=== PATIENT | male | born 1975 | race Caucasian/White ===

== ENCOUNTER 2018-02-11 11:52 | Emergency (ER) | payer BC, OTHER ==
[2018-02-11] MEDS ORDERED: NS 0.9% 1000 ML* 1,000 ML IV ONE (12:41)
[2018-02-11 13:07] LABS: ABS Basophils 0 10^3/ul (0-0.2); ABS Eosinophils 0.1 10^3/ul (0-0.6); ABS Lymphocytes 2.4 10^3/ul (1.0-4.8); ABS Monocytes 0.5 10^3/ul (0-0.8); ABS Neutrophils 3.3 10^3/ul (1.5-7.7); ABS Nucleated RBC 0 10^3/ul; Eosinophil % 2.1 % (0-6); Hematocrit 42 % (42-52); Hemoglobin 14.3 g/dl (14.0-18.0); Lymphocyte % 38.3 % (25-47); Mean Corpuscular HGB Conc 34 g/dl (31-36); Mean Corpuscular Hemoglobin 33 pg (27-31); Mean Corpuscular Volume 95 fL (80-94); Mean Platelet Volume 8.5 fL (7.4-10.4); Nucleated Red Blood Cells % 0.1; Platelet Count 198 10^3/ul (150-450); Red Blood Count 4.38 10^6/ul (4.00-5.40); Red Cell Distribution Width 13 % (10.5-15); White Blood Count 6.4 10^3/ul (3.5-10.8)
--- NOTE | 2018-02-11 13:12 | ED ---
Syncope/Near Syncope - HPI Summary HPI Summary: Pt is a 42 y/o male who presents to the ED s/p syncope last night. He states he went to the bathroom in the middle of the night, and he suddenly felt lightheaded and dizzy. Pt saw spots and felt nauseated, then he woke up on the floor. This happened about 2 years ago, but he did not see a physician afterwards. He denies any headache, vomiting, CP, palpitations, SOB, abdominal pain, incontinence, or blood in his urine/stool. He denies any hx of HTN, although he has a FHx of [place]. Pt notes that he rode his exercise bike last night and was sweating a lot, so he is possibly dehydrated. - History Of Current Complaint Chief Complaint: EDSyncope Time Seen by Provider: 02/11/18 13:00 Hx Obtained From: Patient Onset/Duration: Sudden Onset, Resolved Timing: Days - Last night Context: Unwitnessed Activity At Onset: Other - Urinating Aggravating Factor(s): Other - urination Alleviating Factor(s): Spontaneous Resolution Associated Signs And Symptoms: Dizzy, Lightheadedness, Other - nausea Related History: Similar Episode/Dx as - 2 years ago syncope - Allergies/Home Medications Allergies/Adverse Reactions: Allergies Allergy/AdvReac Type Severity Reaction Status Date / Time No Known Allergies Allergy Verified 03/04/13 12:20 PMH/Surg Hx/FS Hx/Imm Hx Endocrine/Hematology History: Denies: Hx Diabetes, Hx Thyroid Disease Cardiovascular History: Denies: Hx Hypertension Respiratory History: Denies: Hx Asthma, Hx Chronic Obstructive Pulmonary Disease (COPD) GI History: Denies: Hx Ulcer Neurological History: Reports: Other Neuro Impairments/Disorders - Syncope Infectious Disease History: No Infectious Disease History: Denies: Hx Clostridium Difficile, Hx Hepatitis, Hx Human Immunodeficiency Virus (HIV), Hx of Known/Suspected MRSA, Hx Shingles, Hx Tuberculosis, Traveled Outside the [place] in Last 30 Days - Family History Known Family History: Positive: Cardiac Disease - [place], Other - [place] - Social History Substance Use Type: Reports: None Hx Tobacco Use: No Smoking Status (MU): Never Smoked Tobacco Review of Systems Positive: Other - Black spots Negative: Palpitations, Chest Pain Negative: Shortness Of Breath Positive: Nausea. Negative: Abdominal Pain, Vomiting, Other - blood in stool Negative: hematuria, incontinence Neurological: Other - Lightheadedness, dizziness Positive: Syncope. Negative: Headache All Other Systems Reviewed And Are Negative: Yes Physical Exam - Summary Physical Exam Summary: Appearance: Well appearing, no pain distress Skin: warm, dry, reflects adequate perfusion Head/face: normal Eyes: EOMI, NICOLA ENT: mucous membranes moist Neck: supple, non-tender Respiratory: CTA, breath sounds present Cardiovascular: RRR, pulses symmetrical Abdomen: non-tender, soft Bowel Sounds: present Musculoskeletal: normal, strength/ROM intact Neuro: normal, sensory motor intact, A&Ox3 Triage Information Reviewed: Yes Vital Signs On Initial Exam: Initial Vitals Temp Pulse Resp BP Pulse Ox 96.8 F 71 19 126/72 99 02/11/18 11:53 02/11/18 11:53 02/11/18 11:53 02/11/18 11:53 02/11/18 11:53 Vital Signs Reviewed: Yes Diagnostics - Vital Signs Vital Signs Temp Pulse Resp BP Pulse Ox 02/11/18 11:53 96.8 F 71 19 126/72 99 - Laboratory Lab Results: Lab Results 02/11/18 Range/Units 13:01 WBC 6.4 (3.5-10.8) 10^3/ul RBC 4.38 (4.00-5.40) 10^6/ul Hgb 14.3 (14.0-18.0) g/dl Hct 42 (42-52) % MCV 95 H (80-94) fL MCH 33 H (27-31) pg MCHC 34 (31-36) g/dl RDW 13 (10.5-15) % Plt Count 198 (150-450) 10^3/ul MPV 8.5 (7.4-10.4) fL Neut % (Auto) 51.9 (38-83) % Lymph % (Auto) 38.3 (25-47) % [place] % (Auto) 7.3 H (0-7) % Eos % (Auto) 2.1 (0-6) % Baso % (Auto) 0.4 (0-2) % Absolute Neuts (auto) 3.3 (1.5-7.7) 10^3/ul Absolute Lymphs (auto) 2.4 (1.0-4.8) 10^3/ul Absolute Monos (auto) 0.5 (0-0.8) 10^3/ul Absolute Eos (auto) 0.1 (0-0.6) 10^3/ul Absolute Basos (auto) 0 (0-0.2) 10^3/ul Absolute Nucleated RBC 0 10^3/ul Nucleated RBC % 0.1 Result Diagrams: 02/11/18 13:01 02/11/18 13:01 Lab Statement: Any lab studies that have been ordered have been reviewed, and results considered in the medical decision making process. - EKG 12:01 Cardiac Rate: NL - 65 bpm EKG Rhythm: Sinus Rhythm ST Segment: Normal Summary of EKG Findings: 1st degree AV block, nl axis, nl intervals Course/Dx Course Of Treatment: Patient with micturition syncope with evidence of first- degree AV block only on EKG. Laboratories benign otherwise other than mild macrocytosis. B12 ordered. Holter monitor placed here. Hydrated and feeling improved after eating. Discharged in good condition to follow up with primary care physician who I spoke to. - Diagnoses Provider Diagnoses: Micturition syncope - Physician Notifications Discussed Care of Patient With: Jean Carlos Muse - will follow-up in the office Discharge - Sign-Out/Discharge Documenting (check all that apply): Patient Departure - Discharge - Discharge Plan Condition: Improved Disposition: HOME Patient Education Materials: Syncope (ED) Referrals: Jean Carlos Muse MD [Primary Care Provider] - Additional Instructions: Call Dr. Muse today to schedule prompt follow-up. He will likely want to do a Holter monitor. He may want to refer you to cardiology or do other testing. Return with repeat passing out, worse, new symptoms or other concerns. In the middle of the night if you have to urinate sit on the side of the bed for 30 seconds to 1 minute before use in the restroom. Then you may want to try sitting down to urinate. - Billing Disposition and Condition Condition: IMPROVED Disposition: Home - Attestation Statements Document Initiated by Scribe: Yes Documenting Scribe: Fabiola Sheehan Provider For Whom Scribe is Documenting (Include Credential): Jhonny Padilla MD Scribe Attestation: Fabiola Carl, scribed for Jhonny Padilla MD on 02/11/18 at 1902. Scribe Documentation Reviewed: Yes Provider Attestation: The documentation as recorded by the Fabiola odonnell accurately reflects the service I personally performed and the decisions made by me, Jhonny Padilla MD
[2018-02-11 13:33] LABS: EGFR Non-African American 93.3 (>60)
[2018-02-11 16:30] VITALS: BP 117/86
== END 2018-02-11 16:29 | disposition home or self-care (01) ==
LOC: ED 11:52
DX: R55 Syncope and collapse (principal); R11.0 Nausea; I44.0 Atrioventricular block, first degree
CPT/HCPCS: 36415; 80048; 82607; 85025; 93005; 96360; 99282

== ENCOUNTER 2023-06-16 17:52 | Observation (INO) ==
[2023-06-16 18:26] LABS: ABS Eosinophils 0.1 10^3/uL (0.0-0.5); ABS Lymphocytes 2.9 10^3/uL (1.0-4.8); ABS Monocytes 0.5 10^3/uL (0.0-1.1); ABS Neutrophils 3.6 10^3/uL (1.5-7.6); ABS Nucleated RBC 0.01 10^3/ul; Eosinophil % 0.8 %; Hemoglobin 13.7 g/dL (13.2-16.3); Lymphocyte % 40.8 %; Mean Corpuscular Hemoglobin 32.7 pg (27-33); Mean Corpuscular Hgb Conc 35.1 g/dL (31-36); Mean Corpuscular Volume 93.3 fL (80-97); Mean Platelet Volume 8.1 fL (7.5-11.2); Nucleated Red Blood Cells % 0.2 %/100WBC (0.0-0.8); Platelet Count 228 10^3/uL (150-450); Red Blood Count 4.18 10^6/uL (4.06-5.63); Red Cell Distribution Width 13.2 % (12-17)
[2023-06-16 18:33] LABS: INR 1.12 (0.83-1.13)
[2023-06-16 18:49] LABS: High Sens Troponin Baseline < 3 pg/mL (<20)
[2023-06-16 19:10] LABS: ALT 11 U/L (7-52); AST 15 U/L (13-39); Albumin 4.1 g/dL (3.2-5.2); Albumin/Globulin Ratio 2.1 (1-3); Alkaline Phosphatase 46 U/L (35-149); Anion Gap 8 mmol/L (2-16); Blood Urea Nitrogen 11 mg/dL (6-24); CO2 Carbon Dioxide 24 mmol/L (22-32); Calcium 8.8 mg/dL (8.6-10.3); Chloride 101 mmol/L (101-111); Creatinine, Serum 0.88 mg/dL (0.67-1.17); Glucose 98 mg/dL (70-100); Potassium 3.7 mmol/L (3.5-5.0); Sodium 133 mmol/L (135-145); Total Bilirubin 0.4 mg/dL (0.2-1.0); Total Protein 6.1 g/dL (6.4-8.9); eGFR CKD-EPI 106.1 (>60)
[2023-06-16 20:06] LABS: High Sensitivity Troponin 1 Hr < 3 pg/mL (<20)
[2023-06-16 22:14] LABS: TSH Ultra Thyroid Stim Horm 0.88 mcIU/mL (0.34-5.60)
[2023-06-18 13:55] VITALS: BP 118/78
== END 2023-06-18 15:15 | disposition home or self-care (01) ==
LOC: ED 17:52 → EDHOLD 17:52 → SUATTDRO 23:44 → EDHOLD 06-17 02:30 → MEDTELE 06-17 02:55
PROVIDERS: ADMIT Internal Medicine; ATTEND Hospitalist